=== PATIENT | female | born 1935 | race American Indian/Alaskan Native ===

== ENCOUNTER 2016-12-04 14:17 | Outpatient (CLI) | payer MEDICARE ==
--- NOTE | 2016-12-04 15:16 | Magnetic Resonance Report ---
MRI scan of brain: History: Memory loss. Technique: Multiplanar, multisequence images were obtained without contrast injection. Findings: No evidence of restricted diffusion. Ventricles are normal in size and midline in location. No evidence of acute ischemia, hemorrhage or mass. Periventricular areas of hyperintensity. Normal brainstem and cerebellum. Impression: Small vessel ischemic changes. No acute intracranial abnormality.
== END 2016-12-04 14:18 | disposition home or self-care (01) ==
LOC: MRI 14:17
PROVIDERS: ATTEND Internal Medicine
DX: R41.3 Other amnesia (principal)
CPT/HCPCS: 70551

== ENCOUNTER 2017-04-24 13:16 | Outpatient (CLI) | payer MEDICARE ==
--- NOTE | 2017-04-24 16:21 | Cat Scan Report ---
FINAL REPORT PROCEDURE: CT ABDOMEN PELVIS WO CON TECHNIQUE: Computerized axial tomography of the abdomen and pelvis was performed without intravenous contrast. This study is performed without intravascular contrast material and its sensitivity for abdominal and pelvic pathology, including neoplasms, inflammation, abscess, free fluid, thrombosis, arterial dissection and infarction, is reduced compared with a contrast enhanced study. HISTORY: ABDOMINAL PAIN COMPARISON: No prior studies are available for comparison. FINDINGS: Lower Lung bahena: There is some linear atelectasis in the right lung base minimal changes left base. Small to moderate size hiatal hernia appears to be present. Lung bases otherwise unremarkable. Upper Abdomen: Gallbladder is surgically absent. There are 3 low-density nodules in the right lobe of the liver. One of these is slightly exophytic. I suspect these represent small hepatic cyst. The largest measures 2 centimeters. This could be confirmed with ultrasound if clinically indicated. Similar appearing 8 millimeter lesion is seen in the left lobe of the liver adjacent to the falciform ligament anteriorly. The adrenal glands, the unenhanced images the pancreas and spleen are also unremarkable. Kidneys, Ureters and Urinary bladder: No abnormalities are seen. Retroperitoneum: Atherosclerotic changes are seen in the abdominal aorta. No aneurysm is visualized. Nonspecific subcentimeter lymph nodes are seen in the retroperitoneum. No pathologically enlarged lymph nodes are identified. Bowel: Moderate sigmoid diverticulosis is visualized. There is mild to moderate diverticulosis also visualized in the descending colon. On coronal image 76 through image 92 series 101 there appears to be minimal increased density adjacent to the distal descending colon. I cannot exclude mild diverticulitis. There is severe diverticulosis in the proximal half of the transverse colon, milder changes distally. There is also severe diverticulosis in the hepatic flexure. I do not see diverticulitis in these areas. The appendix is visualized in the right mid abdomen laterally. The diameter measures up to 12.8 millimeters. The wall appears thickened. I do not see inflammatory change in the adjacent mesentery. No abscess free air or bowel obstruction is identified. Reproductive organs: The fundus of the uterus is slightly lobulated. I suspect fibroids are present. The uterus is otherwise unremarkable. No abnormal adnexal masses are identified. Other: There is moderate lumbar scoliosis convex the right apex at L2. Moderate diffuse degenerative disc disease seen in the lumbar spine. No acute bone abnormalities are identified. IMPRESSION: There is advanced diffuse diverticulosis seen in the colon. As indicated above there is mild increased density in the mesentery adjacent to the distal descending colon. I cannot exclude mild diverticulitis. The appendix is distended measuring up to 12 millimeters. The wall appears thickened. There is however no definite inflammatory change in the adjacent mesentery. Given the wall thickening and diameter of the appendix, greater than 8 millimeters, is suspicious for acute appendicitis. Correlation with clinical presentation is recommended. Consider surgical consultation. Low-density lesions seen in the liver as described suggesting several hepatic cyst. This could be confirmed with ultrasound if clinically indicated. Gallbladder surgically absent. Small to moderate size hiatal hernia is present.. Fundus of the uterus appears mildly lobulated, suspect fibroids are present. This could be confirmed with ultrasound if clinically indicated Lumbar scoliosis.
== END 2017-04-24 13:17 | disposition home or self-care (01) ==
LOC: CT 13:16
PROVIDERS: ATTEND Internal Medicine
DX: K44.9 Diaphragmatic hernia without obstruction or gangrene (principal); K57.30 Diverticulosis of large intestine without perforation or abscess without bleeding; J98.11 Atelectasis; K76.89 Other specified diseases of liver; I70.0 Atherosclerosis of aorta; M41.86 Other forms of scoliosis, lumbar region; M51.36 Other intervertebral disc degeneration, lumbar region; Z90.49 Acquired absence of other specified parts of digestive tract
CPT/HCPCS: 74176